=== PATIENT | male | born 1950 | race Caucasian/White ===

== ENCOUNTER → 2020-02-03 | Outpatient (CLI) | payer MEDICARE ==
[~2020-02-03] MED LIST: ALFUZOSIN HCL10 MG PO; FINASTERIDE5 MG PO; FLOMAX0.4 MG PO; FLONASE16 GM NS; HYDROXYCHLOROQ200 MG PO; IBUPROFEN400 MG PO; IOPAMIDOL 370 MG/ML 200 ML INFUS..BTL INJ ONE; LATANOPROST2.5 ML OU; LOSARTAN POTAS100 MG PO; NAPROXEN250 MG PO; NAPROXEN500 MG PO; NORVASC5 MG PO; OMEPRAZOLE40 MG PO; SODIUM CHLORIDE 0.9% 50ML 50 ML ONE; XANAX0.25 MG PO
[2020-02-03 11:07] LABS: BLOOD UREA NITROGEN 16 mg/dL (7-26); BUN/CREATININE RATIO 21 (6-25); CREATININE, SERUM 0.77 mg/dL (0.72-1.25); EST GLOMERULAR FILTRATION RATE > 60 ML/MIN (60-)
--- NOTE | 2020-02-03 13:31 | Diagnostic Imaging Report ---
CT of the chest. Comparison: None Clinical History: Preop Technique: Helical CT scan of the chest was performed from just above the thoracic inlet through the adrenal glands. Intravenous contrast administration was utilized. Coronal and sagittal reconstructions were generated from the raw data. Multiple images were submitted for interpretation. This exam was performed according to our departmental dose-optimization program which includes automated exposure control, adjustment of the mA and/or kV according to patient size Discussion: Lung zimmerman: No significant focal disease. Central airways: Unremarkable Pleural spaces and pleura: Unremarkable Pulmonary darian: Normal Mediastinum: Unremarkable Cardiac chambers and pericardium: Unremarkable Systemic great vessels: Unremarkable Central pulmonary vessels: Unremarkable Thyroid: Unremarkable Lymph nodes: Normal sized lymph nodes Azygos vein: Unremarkable The esophagus: Normal. Thoracic duct: Unremarkable Osseous structures: Degenerative changes right shoulder with suggestion of orthopedic surgery. Mid thoracic spine hemangioma. Degenerative disc disease. Upper abdomen: Unremarkable Body wall: Unremarkable Breasts: Unremarkable Axilla: Unremarkable Lower neck: Unremarkable. Impression: No significant abnormality on this chest CT. Signed by: James Pepper MD on 02/03/2020 1:27 PM
== END ==
LOC: CT 09:48
PROVIDERS: ATTEND Internal Medicine Gastroenterology
DX: K22.2 Esophageal obstruction (principal); M51.34 Other intervertebral disc degeneration, thoracic region
CPT/HCPCS: 36415; 71260; 82565; 84520; Q9967

== ENCOUNTER → 2020-02-13 | Day surgery (SDC) | payer MEDICARE, OTHER ==
[2020-02-09 10:00] LABS: BASOPHILS # (AUTO) 0.1 (0.0-0.1); BASOPHILS % 0.6 % (0.0-1.0); EOSINOPHILS # (AUTO) 0.5 (0.0-0.4); EOSINOPHILS % 5.2 % (0.0-6.0); HEMATOCRIT 40.8 % (38.2-49.6); HEMOGLOBIN 13.2 g/dL (14.0-18.0); LYMPHOCYTES # (AUTO) 2.7 (1.0-3.2); LYMPHOCYTES % 26.3 % (18.0-39.1); MEAN CORPUSCULAR HEMOGLOBIN 27.7 pg (28-32); MEAN CORPUSCULAR HGB CONC 32.4 g/dL (31-35); MEAN CORPUSCULAR VOLUME 85.7 fL (81-99); MONOCYTES # (AUTO) 1.1 (0.2-0.8); NEUTROPHILS # (AUTO) 5.8 (2.1-6.9); NEUTROPHILS % 56.5 % (38.7-80.0); PLATELET COUNT 334 x10e3/uL (140-360); RED BLOOD COUNT 4.76 x10e6/uL (4.3-5.7); RED CELL DISTRIBUTION WIDTH 12.7 % (11.7-14.4)
[~2020-02-13] MED LIST changes: +DEXMEDETOMIDINE HCL 2 ML ONE; +FENTANYL CITRATE/PF 100MCG/2 ML INJ ONE; +HYOSCYAMINE 0.125 MG TAB ONE; -IOPAMIDOL 370 MG/ML 200 ML INFUS..BTL INJ ONE; +MIDAZOLAM HCL 2 MG/2 ML VIAL ONE; +PROPOFOL IV EMULSION 10 MG/ML 20 ML VIAL ONE; +SODIUM CHLORIDE 0.9% 250ML 250 ML ONE; -SODIUM CHLORIDE 0.9% 50ML 50 ML ONE
--- OUTSIDE RECORDS SUMMARY | 2020-02-13 05:17 | XMS REPORT | Continuity of Care Document ---
Author Author Kush Olivia Coub DAMIEN [employer] Address Unknown Phone Unavailable Care Team Providers Care Dye Beck Reel Operator Name Role Phone [employer] Unavailable Un available Problems Problem Status Onset Date Classification Date Reported Comments Source PELVIC MASS Active 06/08/2019 [facility] UNK Active 1 09/29/2016 [facility] Allergic disposition (disorder) Resolved Problem [facility] Arthropathy (disorder) Resolved Problem 02/08/2020 [facility] Benign prostatic hyperplasia (disorder) Active Problem 02/08/2020 [facility] Gastroesophageal reflux disease (disorder) Active Problem 02/08/2020 [facility] Hypertensive disorder, systemic arterial (disorder) Active Problem 02/08/2020 [facility] Impotence of organic origin (disorder) Resolved Problem 02/08/2020 [facility] Mononeuropathy of upper limb (disorder) Resolved Problem 02/08/2020 [facility] Mumps (disorder) Resolved Problem 02/08/2020 [facility] Nocturia (finding) Resolved Problem 02/08/2020 [facility] Raised prostate specific antigen (finding) Active Problem 02/08/2020 [facility] Reduced libido (finding) Resol angelia Problem [facility] Retention of urine (disorder) Resolved Problem [facility] Tinnitus (finding) Resolved Problem 02/08/2020 [facility] Venous varices (disorder) Reso lved Problem [facility] Medications Medication Details Route Status Patient Instructions Ordering Provider Order Date Source tamsulosin 0.4 mg oral capsule 0.4 mg = 1 cap, PO, Daily, # 90 cap, 0 Refill(s) Active 02/06/2020 [facility] Hydroxychloroquine Sulfate 200 MG Oral Tablet 200 mg = 1 tab, PO, Daily, 0 Refill(s) Active 07/27/2019 [facility] 60 ACTUAT Fluticasone propionate 0.05 MG /ACTUAT Dry Powder Inhaler INHALATION, BID, 0 Refill(s) Active 07/27/2019 [facility] Sodium Phosphate, Dibasic 35.5 MG/ML / S odium Phosphate, Monobasic 96.4 MG/ML Enema [Fleet Enema] 1 ea, [place], ONCE, morning of procedure, # 118 ml, 0 Refill(s), [id number] Active 04/25/2019 [facility] Ciprofloxacin 500 MG Oral Tablet [Cipro] 500 mg = 1 tab, PO, Q12H, start day before procedure, X 3 day, # 6 tab, 0 Refill(s), [id number] Active 04/25/2019 [facility] Rocephin 1 g injection 1 gm, R oute: IM, Q12H, Dosing Weight 91.818, kg, Start date: 10/11/18 21:00:00 FORENSIC SCIENCE TECHNICIAN, Duration: 30 day, Stop date: 05/09/19 9:00:00 CDT, ABX Indication: Surgical Prophylaxis Active 10/12/2018 [facility] Ciprofloxacin 500 MG Oral Tablet [Cipro] 500 mg = 1 tab, PO, Q12H, start day before procedure, X 2 day, # 4 tab, 0 Refill(s), [id number] No Longer Active 10/11/2018 [facility] Sodium Phosphate, Dibasic 35.5 MG/ML / S odium Phosphate, Monobasic 96.4 MG/ML Enema [Fleet Enema] 1 ea, [place], ONCE, morning of procedure, # 118 ml, 0 Refill(s), Pharmacy: [facility] #[id number] Active 09/10/2018 [facility] Ciprofloxacin 500 MG Oral Tablet [Cipro] 500 mg = 1 tab, PO, Q12H, start day before procedure, X 3 day, # 6 tab, 0 Refill(s), Pharmacy: [facility]/pharmacy #[id number] No Longer Active 09/10/2018 [facility] finasteride 5 mg oral tablet 5 mg = 1 tab, PO, Daily, # 30, 11 Refill(s) Active 08/26/2018 [facility] ePHEDrine (ANES) Route: IV, Dr ug form: INJ, ONCE, Stop date: 09/01/17 11:35:00 FORENSIC SCIENCE TECHNICIAN Inactive 09/01/2017 [facility] ondansetron (ANES) Route: IV, Drug form: INJ, ONCE, Stop date: 09/01/17 11:19:00 FORENSIC SCIENCE TECHNICIAN Inactive 09/01/2017 [facility] metoclopramide (ANES) Route: I V, Drug form: INJ, ONCE, Stop date: 09/01/17 11:14:00 FORENSIC SCIENCE TECHNICIAN Inactive 09/01/2017 [facility] famotidine (ANES) Route: IV, D rug form: INJ, ONCE, Stop date: 09/01/17 11:14:00 FORENSIC SCIENCE TECHNICIAN Inactive 09/01/2017 [facility] fentaNYL (ANES) Route: IV, Marcelo g form: INJ, ONCE, Stop date: 09/01/17 11:09:00 FORENSIC SCIENCE TECHNICIAN Inactive 09/01/2017 [facility] lidocaine (ANES) Route: IV, Dr ug form: INJ, ONCE, Stop date: 09/01/17 11:09:00 FORENSIC SCIENCE TECHNICIAN Inactive 09/01/2017 [facility] propofol (ANES) Route: IV, Marcelo g form: INJ, ONCE, Stop date: 09/01/17 11:09:00 FORENSIC SCIENCE TECHNICIAN Inactive 09/01/2017 [facility] ciprofloxacin (ANES) 2 mg Rout e: IV, Drug form: INJ, Start date: 09/01/17 10:23:00 FORENSIC SCIENCE TECHNICIAN, Stop date: 09/01/17 11:23:00 FORENSIC SCIENCE TECHNICIAN Inactive 09/01/2017 [facility] Lactated Ringers Injection IV (ANES) 1000 mL Route: IV, Total Volume: 1,000, Start date: 09/01/17 10:00:00 FORENSIC SCIENCE TECHNICIAN, Stop date: 09/01/17 11:00:00 FORENSIC SCIENCE TECHNICIAN Inactive 09/01/2017 [facility] tramadol hydrochloride 50 MG Oral Tablet 50 mg = 1 tab, PO, Q8H, PRN Pain, X 20 day, # 30 tab, 0 Refill(s) Active 09/01/2017 [facility] Hyoscyamine Sulfate 0.125 MG Sublingual Tablet [Levsin ] 0.125 mg = 1 tab, SL, Q4H, PRN Bladder Spasm, # 40 tab, 0 Refill(s) Active 09/01/2017 [facility] Ciprofloxacin 500 MG Oral Tablet [Cipro] 500 mg = 1 tab, PO, Q12H, for UTI, X 3 day, # 6 tab, 0 Refill(s) Active 09/01/2017 [facility] finasteride 5 mg oral tablet 5 mg = 1 tab, PO, Daily, # 30 tab, 1 Refill(s) Active 09/01/2017 [facility] alfuzosin 10 mg oral tablet, extended release 10 mg = 1 tab, PO, Daily, # 30 tab, 1 Refill(s) Active 09/01/2017 [facility] Calcium Chloride 0.0014 MEQ/ML / Potassi um Chloride 0.004 MEQ/ML / Sodium Chloride 0.103 MEQ/ML / Sodium Lactate 0.028 MEQ/ML Injectable Solution 1,000 mL, Rate: 25 ml/hr, Infuse over: 4 0 hr, Route: IV, Dosing Weight 90 kg, Total Volume: 1,000, Start date: 09/01/17 8:21:00 FORENSIC SCIENCE TECHNICIAN, Duration: 30 day, Stop date: 10/01/17 8:20:00 FORENSIC SCIENCE TECHNICIAN, 2.07, m2 Inactive 09/01/2017 [facility] fluconazole 200 mg oral tablet 200 mg = 1 tab, PO, Daily, 0 Refill(s) Active 08/25/2017 [facility] Fluticasone propionate 0.05 MG/ACTUAT Me tered Dose Nasal [place] 1 spray, NASAL, Daily, 0 Refill(s) Active 08/25/2017 [facility] finasteride 5 mg oral tablet 5 mg = 1 tab, PO, Daily, 0 Refill(s) No Longer Active 08/25/2017 [facility] alfuzosin 10 mg oral tablet, extended release 10 mg = 1 tab, PO, Daily, 0 Refill(s) No Longer Active 08/25/2017 [facility] naproxen 500 mg oral tablet 50 0 mg = 1 tab, PO, BID, 0 Refill(s) Active 08/25/2017 [facility] omeprazole 40 mg oral delayed release capsule 40 mg = 1 cap, PO, Daily, 0 Refill(s) Active 08/25/2017 [facility] Hydroxychloroquine Sulfate 200 MG Oral Tablet 200 mg = 1 tab, PO, Daily, 0 Refill(s) Active 08/25/2017 [facility] amLODIPine 5 mg oral tablet 5 mg = 1 tab, PO, Daily, 0 Refill(s) Active 08/25/2017 [facility] losartan 25 mg oral tablet 25 mg = 1 tab, PO, Daily, 0 Refill(s) Active 08/25/2017 [facility] latanoprost 0.05 MG/ML Ophthalmic Solution 1 drp, QPM, 0 Refill(s) Active 08/25/2017 [facility] Allergies, Adverse Reactions, Alerts Substance Category Reaction Severity Reaction type Status Date Reported Comments Source Latex Assertion Drug allergy Active [facility] Immunizations No Data Provided for This Section Results Order Name Results Value Reference Range Date Interpretation Comments Source ELECTROLYTES AGAP 12.0 10.0 - 20.0 08/25/2017 [facility] ELECTROLYTES eGFR 89 08/25/2017 Result Comment: The eGFR is calculated using the CKD-EPI formula. In most young, healthy individuals the eGFR will be >90 mL/min/1.73m2. The eGFR declines with age. An eGFR of 60-89 may be normal in some populations, particularly the elderly, for whom the CKD-EPI formula has not been extensively validated. Use of the eGFR is not recommended in the following populations:

Individuals with unstable creatinine concentrations, including patients and those with serious co-morbid conditions.

Patients with extremes in muscle mass or diet.

The data above are obtained from the National Kidney Disease Education Program (NKDEP) which additionally recommends that when the eGFR is used in patients with extremes of body mass index for purposes of drug dosing, the eGFR should be multiplied by the estimated BMI. [facility] ELECTROLYTES BUN 11 7 - 22 08/25/2017 [facility] ELECTROLYTES Creatinine Lvl 0.8 7 0.50 - 1.40 08/25/2017 [facility] ELECTROLYTES Calcium Lvl 8.8 8.5 - 10.5 08/25/2017 [facility] ELECTROLYTES CO2 27 24 - 32 08/25/2017 [facility] ELECTROLYTES Chloride Lvl 105 95 - 109 08/25/2017 [facility] ELECTROLYTES Potassium Lvl 4.0 3.5 - 5.1 08/25/2017 [facility] ELECTROLYTES Sodium Lvl 140 135 - 145 08/25/2017 [facility] ELECTROLYTES Glucose Lvl 92 70 - 99 08/25/2017 [facility] HEMATOLOGY PTT 25.6 22.9 - 35.8 08/25/2017 [facility] HEMATOLOGY PT 13.5 12.0 - 14.7 08/25/2017 [facility] HEMATOLOGY INR 1.03 0.85 - 1.17 08/25/2017 [facility] HEMATOLOGY Hgb 13.7 14.0 - 18.0 08/25/2017 [facility] HEMATOLOGY MCHC 33.9 32.0 - 36.0 08/25/2017 [facility] HEMATOLOGY MCH 29.3 27.0 - 31.0 08/25/2017 [facility] HEMATOLOGY MCV 86.5 80.0 - 94.0 08/25/2017 [facility] HEMATOLOGY Hct 40.6 42.0 - 54.0 08/25/2017 [facility] HEMATOLOGY Platelet 323 133 - 450 08/25/2017 [facility] HEMATOLOGY RDW 13.3 11.5 - 14.5 08/25/2017 [facility] HEMATOLOGY RBC 4.69 4.70 - 6.10 08/25/2017 [facility] HEMATOLOGY WBC 7.3 3.7 - 10.4 08/25/2017 [facility] HEMATOLOGY MPV 8.5 7.4 - 10.4 08/25/2017 [facility] HEMATOLOGY Monocytes 9.8 2.0 - 12.0 08/25/2017 [facility] HEMATOLOGY Lymphocytes 26.2 20.0 - 40.0 08/25/2017 [facility] HEMATOLOGY Segs 59.5 45.0 - 75.0 08/25/2017 [facility] HEMATOLOGY Segs-Bands # 4.3 1.5 - 8.1 08/25/2017 [facility] HEMATOLOGY Lymphocytes # 1.9 1.0 - 5.5 08/25/2017 [facility] HEMATOLOGY Eosinophils # 0.3 0.0 - 0.5 08/25/2017 [facility] HEMATOLOGY Basophils 0.4 0.0 - 1.0 08/25/2017 [facility] HEMATOLOGY Monocytes # 0.7 0.0 - 0.8 08/25/2017 [facility] HEMATOLOGY Eosinophils 4.1 0.0 - 4.0 08/25/2017 [facility] SPECIAL CHEMISTRY PSA 1.26 0.00 - 4.00 08/25/2017 [facility] URINE AND STOOL UA Glucose Negative mg/dL Negative mg/dL 08/25/2017 [facility] URINE AND STOOL UA Protein Negative mg/dL Negative mg/dL 08/25/2017 [facility] URINE AND STOOL UA Color Yellow *NA* (08/25/17 11:36 AM) Yellow 08/25/2017 [facility] URINE AND STOOL UA Urobilinogen <=1.0 mg/dL 0.1 - 1.0 08/25/2017 [facility] URINE AND STOOL UA RBC 1 0 - 2 08/25/2017 [facility] URINE AND STOOL UA Nitrite Negative (08/25/17 11:36 AM) Negative 08/25/2017 [facility] URINE AND STOOL UA Leuk Est Negative (08/25/17 11:36 AM) Negative 08/25/2017 [facility] URINE AND STOOL UA Blood Negative (08/25/17 11:36 AM) Negative 08/25/2017 [facility] URINE AND STOOL UA WBC 1 0 - 5 08/25/2017 [facility] URINE AND STOOL UA Sq Epi None Seen 08/25/2017 [facility] URINE AND STOOL UA Turbidity Slight *ABN* (08/25/17 11:36 AM) Clear 08/25/2017 [facility] URINE AND STOOL UA pH 6.0 5.0 - 8.0 08/25/2017 [facility] URINE AND STOOL UA Spec Grav 1.008 <=1.030 08/25/2017 [facility] URINE AND STOOL UA Bili Negative *NA* (08/25/17 11:36 AM) Negative 08/25/2017 [facility] URINE AND STOOL UA Ketones Negative mg/dL Negative mg/dL 08/25/2017 [facility] Pathology Reports No Data Provided for This Section Diagnostic Reports Report Value Date Source Biopsy abdominal mass VR PROCE DURE INFORMATION: Exam: IR NEEDLE BX ABD/RETROPERITONEAL MASS PERC Exam date and time: 07/27/2019 8:05 AM Clinical history: 69 years old, male; Other: Pelvic mass; Additional info: /pelvic mass TECHNIQUE: Imaging protocol: IR NEEDLE BX ABD/RETROPERITONEAL MASS PERC Other technique: CT imaging performed at this location utilizes radiation dose optimization techniques which include one or more of the following: Automated exposure control, adjustment of the mA and/or kV according to patient size, use of iterative reconstruction technique. COMPARISON: No relevant prior studies available. FINDINGS: Advanced practice providers: None Additional procedures: None Consent: The procedure, risks, benefits and alternatives of the procedure were discussed. Time out: Timeout was performed prior to the procedure. I supervised moderate sedation during this procedure. The patient was monitored by a Hospital nurse using monitored blood pressure, electrocardiogram and pulse oximetry techniques. The moderate sedation record was permanently stored in the hospital information system. The personal supervised moderate sedation time was 19minutes. Medications administered: 1mg of IV Versed 50mcg of IV Fentanyl Procedure summary: The patient was prepped and draped in sterile fashion. With CT guidance, percutaneous needle biopsy of a 2 x 3 CM solid appearing mass in the left suprainguinal region adjacent to the urinary bladder, was performed. 20-gauge core biopsy performed through 1 9-gauge cannula. 4 core biopsy specimens obtained 2 of which were sent in RPMI for flow cytometry if deemed necessary. The procedure was well tolerated clinically. Procedural imaging: CT guidance as described above. Other findings: CT RADIATION DOSE DLP: 1296MGY-CM IMPRESSION: Successful percutaneous core biopsy left suprainguinal pelvic mass. Greg Naqvi MD On 07/27/2019 15:48:53; [id number] 07/27/2019 [facility] Consultation Notes No Data Provided for This Section Discharge Summaries No Data Provided for This Section History and Physicals No Data Provided for This Section Vital Signs Vital Sign Value Date Comments Source Height 165.1 cm 02/06/2020 [facility] Weight 91.563 02/06/2020 [facility] BMI Calculated 33.59 02/06/2020 [facility] Height 165.1 cm 09/05/2019 [facility] Weight 91.506 09/05/2019 [facility] BMI Calculated 33.57 09/05/2019 [facility] Height 170.18 cm 07/27/2019 [facility] Weight 92.727 07/27/2019 [facility] BMI Calculated 32.02 07/27/2019 [facility] Height 165.1 cm 06/08/2019 [facility] Weight 94.001 06/08/2019 [facility] BMI Calculated 34.49 06/08/2019 [facility] Height 167.64 cm 05/16/2019 [facility] Weight 93.21 05/16/2019 [facility] BMI Calculated 33.17 05/16/2019 [facility] Weight 93.722 04/25/2019 [facility] BMI Calculated 33.35 04/25/2019 [facility] Height 167.64 cm 04/25/2019 [facility] Weight 94.261 10/18/2018 [facility] BMI Calculated 33.54 10/18/2018 [facility] Height 167.64 cm 10/18/2018 [facility] Height 170.18 cm 10/11/2018 [facility] Weight 91.818 10/11/2018 [facility] BMI Calculated 31.7 10/11/2018 [facility] Weight 91.818 09/10/2018 [facility] BMI Calculated 31.7 09/10/2018 [facility] Height 170.18 cm 09/10/2018 [facility] BMI Calculated 33 08/26/2018 [facility] Weight 92.727 08/26/2018 [facility] Height 167.64 cm 08/26/2018 [facility] Systolic (mm Hg) 131 09/01/2017 [facility] Diastolic (mm Hg) 68 09/01/2017 [facility] Systolic (mm Hg) 117 09/01/2017 [facility] Diastolic (mm Hg) 75 09/01/2017 [facility] Respitory Rate 9 09/01/2017 [facility] Respitory Rate 12 09/01/2017 [facility] Systolic (mm Hg) 120 09/01/2017 [facility] Diastolic (mm Hg) 75 09/01/2017 [facility] Respitory Rate 10 09/01/2017 [facility] Heart Rate 64 08/25/2017 [facility] Temperature Oral (F) 98.3 F 08/25/2017 [facility] Weight 90 1 10/25/2016 [facility] BMI Calculated 32.02 08/25/2017 [facility] Height 167.64 cm 08/25/2017 [facility] Encounters Location Location Details Encounter Type Encounter Number Reason For Visit Attending Provider ADM Date DC Date Status Source [facility] [id number] Rl Noble 09/01/2017 09/01/2017 [facility] Outpatient [id number] RL NOBLE 08/26/2018 Active [facility] Outpatient [id number] NURSE VISIT 08/26/2018 Active [facility] Outpatient [id number] Rl Noble 08/26/2018 08/27/2018 [facility] Ambulatory Pre-Reg [id number] Rl Noble 08/26/2018 08/27/2018 [facility] Outpatient [id number] RL NOBLE 09/10/2018 Active [facility] Outpatient [id number] Rl Noble 09/10/2018 09/11/2018 [facility] Outpatient [id number] NURSE VISIT 10/11/2018 Active [facility] Outpatient [id number] RL NOBLE 10/11/2018 Active [facility] Outpatient [id number] Rl Noble 10/11/2018 10/12/2018 [facility] Outpatient [id number] Rl Noble 10/11/2018 10/12/2018 [facility] Outpatient [id number] RL NOBLE 10/18/2018 Active [facility] Outpatient [id number] Rl Noble 10/18/2018 10/19/2018 [facility] Outpatient [id number] NURSE VISIT 03/21/2019 Active [facility] Outpatient [id number] Rl Noble 03/28/2019 Active [facility] Outpatient [id number] Rl Noble 03/28/2019 03/29/2019 [facility] Outpatient [id number] Rl Noble 04/25/2019 Active [facility] Outpatient [id number] Rl Noble 04/25/2019 04/26/2019 [facility] Outpatient [id number] NURSE VISIT 04/27/2019 Active [facility] Outpatient [id number] Rl Noble 04/27/2019 04/28/2019 [facility] Outpatient [id number] Rl Noble 05/16/2019 Active [facility] Outpatient [id number] Rl Noble 05/16/2019 05/17/2019 [facility] Outpatient [id number] Rl Noble 06/01/2019 Active [facility] Outpatient [id number] Rl Noble 06/01/2019 06/02/2019 [facility] Outpatient [id number] Rl Noble 06/08/2019 Active [facility] Outpatient [id number] Rl Noble 06/08/2019 06/09/2019 [facility] Outpatient [id number] Rl Noble 06/09/2019 Active [facility] Phone Message [id number] 06/16/2006/18/2019 [facility] Outpatient [id number] Rl Noble 07/04/2019 Active [facility] Outpatient [id number] [facility] 07/04/2019 07/05/2019 [facility] Outpatient [id number] Rl [facility] 07/27/2019 07/28/2019 [facility] Phone Message [id number] 08/05/2008/07/2019 [id number] [facility] Outpatient [id number] Rl [facility] 09/05/2019 09/06/2019 [facility] Outpatient [id number] NURSE VISIT 10/17/2019 Active [facility] [id number] Rl [facility] 10/17/2019 10/17/2019 [facility] Outpatient [id number] Rl [facility] 10/24/2019 Active [facility] [id number] Rl [facility] 10/24/2019 10/24/2019 [facility] Outpatient [id number] Rl [facility] 02/06/2020 Active [facility] Outpatient [id number] Rl [facility] 02/06/2020 02/07/2020 [facility] Outpatient [id number] Rl [facility] 08/06/2020 Active [facility] Procedures Procedure Code Date Perfomer Comments Source Collection of venous blood by venipuncture 80215 04/27/2019 [facility] Biopsy, prostate; needle or punch, singl e or multiple, any approach [id number] 10/11/2018 [facility] Needle biopsy of prostate [id number] 09/28/2018 [facility] uroflowmetry [id number] 10/08/2017 [facility] Cystoscopy [id number] 07/30/2017 [facility] Rotator cuff repair [id number] 09/28/2006 [facility] Meniscal repair [id number] 09/28/1996 [facility] Operation [id number] 09/28/1994 [facility] Hernia repair [id number] 09/28/1976 [facility] Assessment and Plan No Data Provided for This Section Plan of Care No Data Provided for This Section Social History Social History Date Source Social History TypeResponse Alcohol Current, Type Beer, Wine, Liquor. Frequency: 1-2 times per week. Smoking Status Never smoker; Type: Cigars; Exposure to Tobacco Smoke None; Cigarette Smoking Last 365 Days No; Reg Smoking Cessation Counseling No entered on: 02/06/20 08/26/2018 [facility] Social History TypeResponse Alcohol Current, Type Beer, Wine, Liquor. Frequency: 1-2 times per week. Smoking Status Never smoker; Type: Cigars; Exposure to Tobacco Smoke None; Cigarette Smoking Last 365 Days No; Reg Smoking Cessation Counseling No entered on: 07/27/19 08/26/2018 [facility] Family History No Data Provided for This Section Advance Directives No Data Provided for This Section Functional Status No Data Provided for This Section
--- OUTSIDE RECORDS SUMMARY | 2020-02-13 05:17 | XMS REPORT | Summary of Care ---
Author Author [facility] ospital Organization [facility] Address Unknown Phone Unavailable Encounter BLAINE Zaidi(FATOU) [id number] Date(s): 07/27/19 - 07/27/19 [facility] [address] [place] [address]- [phone] Discharge Disposition: Home or Self Care Attending Physician: Rl Davenport MD Referring Physician: Rl Davenport MD Vital Signs Most recent to 1 oldest [Reference Range]: Height 170.18 cm (07/27/19 8:03 AM) Weight 92.727 kg (07/27/19 8:03 AM) Body Mass Index 32.02 m2 (07/27/19 8:03 AM) Problem List Condition Effective Dates Status Health Status Informan t Allergy(Confirmed) Resolved Arthropathy(Confirme Resolved d) BPH (benign Active prostatic hyperplasia)(Confirm ed) GERD Active (gastroesophageal reflux disease)(Confirmed) HTN Active (hypertension)(Confi rmed) Impotence, Resolved organic(Confirmed) Mononeuritis Resolved arm(Confirmed) Mumps(Confirmed) Resolved Nocturia(Confirmed) Resolved Elevated Active PSA(Confirmed) Decreased Resolved libido(Confirmed) Urinary Resolved retention(Confirmed) Tinnitus(Confirmed) Resolved Asymptomatic Resolved varicose veins(Confirmed) Allergies, Adverse Reactions, Alerts Substance Reaction Severity Status Latex Active Medications fluticasone 50 mcg inhalation powder INHALATION, BID, 0 Refill(s) Start Date: 07/27/19 Status: Ordered hydroxychloroquine sulfate 200 mg oral tablet 200 mg = 1 tab, PO, Daily, 0 Refill(s) Start Date: 07/27/19 Status: Ordered Results No data available for this section Immunizations No data available for this section Procedures Procedure Date Related Diagnosis Body Site Status Needle biopsy of prostate 09/2018 Completed Complex uroflowmetry 10/08/17 Completed Cystoscopy 07/30/17 Completed Rotator cuff repair 2009 Completed Rotator cuff repair 2006 Completed Meniscal repair 1996 Completed Operation 1994 Completed Hernia repair 1976 Completed Social History Social History Type Response Alcohol Current, Type Beer, Wine, [place]. Frequency: 1-2 times per week. Smoking Status Never smoker; Type: Cigars; Exposure to Tobacco Smoke None; Cigarette Smoking Last 365 Days No; Reg Smoking C essation Counseling No entered on: 07/27/19 Assessment and Plan No data available for this section
--- OUTSIDE RECORDS SUMMARY | 2020-02-13 05:17 | XMS REPORT | Summary of Care ---
Author Author [facility] Associates [facility] Organization [facility] Urology [facility] Address Unknown Phone Unavailable Encounter BLAINE Zaidi(FATOU) [id number] Date(s): 10/18/18 - 10/18/18 [facility] [address] [address]- [phone] Discharge Disposition: Home or Self Care Attending Physician: Rl Davenport MD Referring Physician: Rl Davenport MD Vital Signs Most recent to 1 oldest [Reference Range]: Height 167.64 cm (10/18/18 4:49 PM) Weight 94.261 kg (10/18/18 4:49 PM) Body Mass Index 33.54 m2 (10/18/18 4:49 PM) Problem List Condition Effective Dates Status Health [...] Substance Reaction Severity Status Latex Active Medications No Known Medications Results No data available for this section [...] Smoking C essation Counseling No entered on: 04/25/19 Assessment and Plan No data available for this section
--- OUTSIDE RECORDS SUMMARY | 2020-02-13 05:17 | XMS REPORT | Summary of Care ---
Author Author [facility] Organization [facility] Address Unknown Phone Unavailable Encounter BLAINE Zaidi(FATOU) [id number] Date(s): 04/25/19 - 04/25/19 [facility] [address] [address]- [phone] Discharge Disposition: Home or Self Care Attending Physician: Rl Davenport MD Referring Physician: Rl Davenport MD Vital Signs Most recent to 1 oldest [Reference Range]: Height 167.64 cm (04/25/19 1:58 PM) Weight 93.722 kg (04/25/19 1:58 PM) Body Mass Index 33.35 m2 (04/25/19 1:58 PM) Problem List Condition Effective Dates Status [...] Substance Reaction Severity Status Latex Active Medications Cipro 500 mg oral tablet 500 mg = 1 tab, PO, Q12H, start day before procedure, X 3 day, # 6 tab, 0 Refill (s), Pharmacy: [facility] #[id number] Start Date: 04/25/19 Stop Date: 04/28/19 Status: Ordered Fleet Enema Extra rectal enema 1 ea, [place], ONCE, morning of procedure, # 118 ml, 0 Refill(s), Pharmacy: [facility] #[id number] Start Date: 04/25/19 Status: Ordered Results No data available for [...]
--- OUTSIDE RECORDS SUMMARY | 2020-02-13 05:17 | XMS REPORT | Summary of Care ---
Author Author [facility] Associates [facility] Organization [facility] Urology [facility] Address Unknown Phone Unavailable Encounter BLAINE Zaidi(FIN) [id number] Date(s): 10/24/19 - 10/24/19 [facility] Urology [address] [address]- [phone] Attending Physician: Rl Davenport MD Referring Physician: Rl Davenport MD Vital Signs No data available for this section Problem List Condition Effective Dates Status Health [...] Reaction Severity Status Latex Active Medications No data available for this section Results No data available for this section [...] Smoking C essation Counseling No entered on: 09/05/19 Assessment and Plan No data available for this section
--- OUTSIDE RECORDS SUMMARY | 2020-02-13 05:17 | XMS REPORT | Summary of Care ---
Author Author [facility] Organization [facility] Address Unknown Phone Unavailable Encounter BLAINE Zaidi(FIN) [id number] Date(s): 06/16/19 - 06/17/19 [facility] [address] [place] [address]- [phone] Vital Signs No data available for this [...] Smoking C essation Counseling No entered on: 06/08/19 Assessment and Plan No data available for this section
--- OUTSIDE RECORDS SUMMARY | 2020-02-13 05:17 | XMS REPORT | Summary of Care ---
Author Author [facility] Organization [facility] Address Unknown Phone Unavailable Encounter BLAINE Zaidi(FIN) [id number] Date(s): 06/01/19 - 06/01/19 [facility] [address] [address]- [phone] Discharge Disposition: Home or Self Care Attending [...] Smoking C essation Counseling No entered on: 05/16/19 Assessment and Plan No data available for this section
--- OUTSIDE RECORDS SUMMARY | 2020-02-13 05:17 | XMS REPORT | Summary of Care ---
Author Author [facility] Organization [facility] Address Unknown Phone Unavailable Encounter BLAINE Zaidi(FATOU) [id number] Date(s): 09/01/17 - 09/01/17 [facility] [address] [place] [address]- Discharge Disposition: Home or Self Care Attending Physician: Rl Davenport MD Referring Physician: Rl Davenport MD Vital Signs 1 2 3 Most recent to oldest [Reference Range]: 167.64 cm (08/25/17 11:20 AM) Height 98.3 DegF (08/25/17 11:44 AM) Temperature Oral [96.4-99.1 DegF] 131/68 mmHg (09/01/17 1:00 PM) 117/75 mmHg (09/01/17 12:15 PM) 120/75 mmHg (09/01/17 12:00 PM) Blood Pressure [90-140/60-90 mmHg] 9 BRMIN *LOW* (09/01/17 12:15 PM) 12 BRMIN *LOW* (09/01/17 12:00 PM) 10 BRMIN *LOW* (09/01/17 11:45 AM) Respiratory Rate [14-20 BRMIN] 64 bpm (08/25/17 11:44 AM) Peripheral Pulse Rate [60-100 bpm] 90 kg (08/25/17 11:20 AM) Weight 32.02 m2 (08/25/17 11:20 AM) Body Mass Index Problem List Condition Effective Dates Status Health Status Informan t BPH (benign Active prostatic hyperplasia)(Confirm ed) GERD Active (gastroesophageal reflux disease)(Confirmed) HTN Active (hypertension)(Confi rmed) Allergies, Adverse Reactions, Alerts Substance Reaction Severity Status NKDA Active Latex Active Medications alfuzosin 10 mg oral tablet, extended release 10 mg = 1 tab, PO, Daily, # 30 tab, 1 Refill(s) Start Date: 09/01/17 Status: Ordered alfuzosin 10 mg oral tablet, extended release 10 mg = 1 tab, PO, Daily, 0 Refill(s) Start Date: 08/25/17 Stop Date: 09/01/17 Status: Discontinued amLODIPine 5 mg oral tablet 5 mg = 1 tab, PO, Daily, 0 Refill(s) Start Date: 08/25/17 Status: Ordered Cipro 500 mg oral tablet 500 mg = 1 tab, PO, Q12H, for UTI, X 3 day, # 6 tab, 0 Refill(s) Start Date: 09/01/17 Stop Date: 09/04/17 Status: Ordered ciprofloxacin (ANES) 2 mg Route: IV, Drug form: INJ, Start date: 09/01/17 10:23:00 CELERY TIER, Stop date: 7 11:23:00 CELERY TIER Start Date: 09/01/17 Stop Date: 09/01/17 Status: Completed ePHEDrine (ANES) Route: IV, Drug form: INJ, ONCE, Stop date: 09/01/17 11:35:00 CELERY TIER Start Date: 09/01/17 Stop Date: 09/01/17 Status: Completed famotidine (ANES) Route: IV, Drug form: INJ, ONCE, Stop date: 09/01/17 11:14:00 CELERY TIER Start Date: 09/01/17 Stop Date: 09/01/17 Status: Completed fentaNYL (ANES) Route: IV, Drug form: INJ, ONCE, Stop date: 09/01/17 11:09:00 CELERY TIER Start Date: 09/01/17 Stop Date: 09/01/17 Status: Completed finasteride 5 mg oral tablet 5 mg = 1 tab, PO, Daily, # 30 tab, 1 Refill(s) Start Date: 09/01/17 Status: Ordered finasteride 5 mg oral tablet 5 mg = 1 tab, PO, Daily, 0 Refill(s) Start Date: 08/25/17 Stop Date: 09/01/17 Status: Discontinued fluconazole 200 mg oral tablet 200 mg = 1 tab, PO, Daily, 0 Refill(s) Start Date: 08/25/17 Status: Ordered fluticasone nasal 0.05 mg/inh spray 1 spray, NASAL, Daily, 0 Refill(s) Start Date: 08/25/17 Status: Ordered hydroxychloroquine sulfate 200 mg oral tablet 200 mg = 1 tab, PO, Daily, 0 Refill(s) Start Date: 08/25/17 Status: Ordered Lactated Ringers Injection IV (ANES) 1000 mL Route: IV, Total Volume: 1,000, Start date: 09/01/17 10:00:00 CELERY TIER, Stop date: 11:00:00 CELERY TIER Start Date: 09/01/17 Stop Date: 09/01/17 Status: Completed Lactated Ringers Injection IV 1000 mL 1,000 mL, Rate: 25 ml/hr, Infuse over: 40 hr, Route: IV, Dosing Weight 90 kg, To carlos Volume: 1,000, Start date: 09/01/17 8:21:00 CELERY TIER, Duration: 30 day, Stop date : 10/01/17 8:20:00 CELERY TIER, 2.07, m2 Start Date: 09/01/17 Stop Date: 09/01/17 Status: Discontinued latanoprost ophthalmic 0.005% solution 1 drp, QPM, 0 Refill(s) Start Date: 08/25/17 Status: Ordered Levsin SL 0.125 mg sublingual tablet 0.125 mg = 1 tab, SL, Q4H, PRN Bladder Spasm, # 40 tab, 0 Refill(s) Start Date: 09/01/17 Status: Ordered lidocaine (ANES) Route: IV, Drug form: INJ, ONCE, Stop date: 09/01/17 11:09:00 CELERY TIER Start Date: 09/01/17 Stop Date: 09/01/17 Status: Completed losartan 25 mg oral tablet 25 mg = 1 tab, PO, Daily, 0 Refill(s) Start Date: 08/25/17 Status: Ordered metoclopramide (ANES) Route: IV, Drug form: INJ, ONCE, Stop date: 09/01/17 11:14:00 CELERY TIER Start Date: 09/01/17 Stop Date: 09/01/17 Status: Completed naproxen 500 mg oral tablet 500 mg = 1 tab, PO, BID, 0 Refill(s) Start Date: 08/25/17 Status: Ordered omeprazole 40 mg oral delayed release capsule 40 mg = 1 cap, PO, Daily, 0 Refill(s) Start Date: 08/25/17 Status: Ordered ondansetron (ANES) Route: IV, Drug form: INJ, ONCE, Stop date: 09/01/17 11:19:00 CELERY TIER Start Date: 09/01/17 Stop Date: 09/01/17 Status: Completed propofol (ANES) Route: IV, Drug form: INJ, ONCE, Stop date: 09/01/17 11:09:00 CELERY TIER Start Date: 09/01/17 Stop Date: 09/01/17 Status: Completed tramadol 50 mg oral tablet 50 mg = 1 tab, PO, Q8H, PRN Pain, X 20 day, # 30 tab, 0 Refill(s) Start Date: 09/01/17 Stop Date: 09/21/17 Status: Ordered Results ELECTROLYTES Most recent to 1 oldest [Reference Range]: Sodium Lvl [135-145 140 mEq/L mEq/L] (08/25/17 11:36 AM) Potassium Lvl 4.0 mEq/L [3.5-5.1 mEq/L] (08/25/17 11:36 AM) Chloride Lvl [95-109 105 mEq/L mEq/L] (08/25/17 11:36 AM) CO2 [24-32 mEq/L] 27 mEq/L (08/25/17 11:36 AM) AGAP [10.0-20.0 12.0 mEq/L mEq/L] (08/25/17 11:36 AM) CHEM PANEL Most recent to 1 oldest [Reference Range]: Creatinine Lvl 0.87 mg/dL [0.50-1.40 mg/dL] (08/25/17 11:36 AM) eGFR 89 mL/min/1.73m2 1 *NA* (08/25/17 11:36 AM) BUN [7-22 mg/dL] 11 mg/dL (08/25/17 11:36 AM) Glucose Lvl [70-99 92 mg/dL mg/dL] (08/25/17 11:36 AM) Calcium Lvl 8.8 mg/dL [8.5-10.5 mg/dL] (08/25/17 11:36 AM) 1Result Comment: The eGFR is calculated using the [...] from the National Kidney Disease Education Program ( NKDEP) which additionally recommends that when the eGFR is used in patients with extremes of body mass index for purposes of drug dosing, the eGFR should be mul tiplied by the estimated BMI. SPECIAL CHEMISTRY Most recent to 1 oldest [Reference Range]: PSA [0.00-4.00 1.26 ng/mL ng/mL] (08/25/17 11:36 AM) URINE AND STOOL Most recent to 1 oldest [Reference Range]: UA Turbidity [Clear] Slight *ABN* (08/25/17 11:36 AM) UA Color [Yellow] Yellow *NA* (08/25/17 11:36 AM) UA pH [5.0-8.0] 6.0 (08/25/17 11:36 AM) UA Spec Grav 1.008 [<=1.030] (08/25/17 11:36 AM) UA Glucose [Negative Negative mg/dL mg/dL] *NA* (08/25/17 11:36 AM) UA Blood [Negative] Negative (08/25/17 11:36 AM) UA Ketones [Negative Negative mg/dL mg/dL] *NA* (08/25/17 11:36 AM) UA Protein [Negative Negative mg/dL mg/dL] (08/25/17 11:36 AM) UA Urobilinogen <=1.0 mg/dL [0.1-1.0 mg/dL] *NA* (08/25/17 11:36 AM) UA Bili [Negative] Negative *NA* (08/25/17 11:36 AM) UA Leuk Est Negative [Negative] (08/25/17 11:36 AM) UA Nitrite Negative [Negative] (08/25/17 11:36 AM) UA WBC [0-5 /HPF] 1 /HPF (08/25/17 11:36 AM) UA RBC [0-2 /HPF] 1 /HPF (08/25/17 11:36 AM) UA Sq Epi None Seen *NA* (08/25/17 11:36 AM) HEMATOLOGY Most recent to 1 oldest [Reference Range]: WBC [3.7-10.4 K/CMM] 7.3 K/CMM (08/25/17 11:36 AM) RBC [4.70-6.10 4.69 M/CMM M/CMM] *LOW* (08/25/17 11:36 AM) Hgb [14.0-18.0 g/dL] 13.7 g/dL *LOW* (08/25/17 11:36 AM) Hct [42.0-54.0 %] 40.6 % *LOW* (08/25/17 11:36 AM) MCV [80.0-94.0 fL] 86.5 fL (08/25/17 11:36 AM) MCH [27.0-31.0 pg] 29.3 pg (08/25/17 11:36 AM) MCHC [32.0-36.0 33.9 g/dL g/dL] (08/25/17 11:36 AM) RDW [11.5-14.5 %] 13.3 % (08/25/17 11:36 AM) Platelet [133-450 323 K/CMM K/CMM] (08/25/17 11:36 AM) MPV [7.4-10.4 fL] 8.5 fL (08/25/17 11:36 AM) Segs [45.0-75.0 %] 59.5 % (08/25/17 11:36 AM) Lymphocytes 26.2 % [20.0-40.0 %] (08/25/17 11:36 AM) Monocytes [2.0-12.0 9.8 % %] (08/25/17 11:36 AM) Eosinophils [0.0-4.0 4.1 % %] *HI* (08/25/17 11:36 AM) Basophils [0.0-1.0 0.4 % %] (08/25/17 11:36 AM) Segs-Bands # 4.3 K/CMM [1.5-8.1 K/CMM] (08/25/17 11:36 AM) Lymphocytes # 1.9 K/CMM [1.0-5.5 K/CMM] (08/25/17 11:36 AM) Monocytes # [0.0-0.8 0.7 K/CMM K/CMM] (08/25/17 11:36 AM) Eosinophils # 0.3 K/CMM [0.0-0.5 K/CMM] (08/25/17 11:36 AM) PT [12.0-14.7 13.5 seconds seconds] (08/25/17 11:36 AM) INR [0.85-1.17] 1.03 (08/25/17 11:36 AM) PTT [22.9-35.8 25.6 seconds seconds] (08/25/17 11:36 AM) Immunizations No data available for this section Procedures Procedure Date Related Diagnosis Body Site Rotator cuff repair 2009 Rotator cuff repair 2006 Meniscal repair 1996 Operation 1994 Hernia repair 1976 Social History Social History Type Response Smoking Status Former smoker; Type: Cigars ; Exposure to Tobacco Smoke None; Cigarette Smoking Last 365 Days No; Reg Smoking C essation Counseling No Assessment and Plan No data available for this section
--- OUTSIDE RECORDS SUMMARY | 2020-02-13 05:17 | XMS REPORT | Summary of Care ---
Author Author [facility] Organization [facility] Address Unknown Phone Unavailable Encounter BLAINE Zaidi(FATOU) [id number] Date(s): 09/10/18 - 09/10/18 [facility] [place] [id number] [place] [address] [place] [address]- Discharge Disposition: Home or Self Care Attending Physician: Rl Davenport MD Referring Physician: Rl Davenport MD Vital Signs Most recent to 1 oldest [Reference Range]: Height 170.18 cm (09/10/18 1:39 PM) Weight 91.818 kg (09/10/18 1:39 PM) Body Mass Index 31.7 m2 (09/10/18 1:39 PM) Problem List Condition Effective Dates Status [...] # 6 tab, 0 Refill (s), Pharmacy: [facility] #[id number] Start Date: 09/10/18 Stop Date: 09/13/18 Status: Completed Fleet Enema Extra rectal enema 1 ea, [place], ONCE, morning of procedure, # 118 ml, 0 Refill(s), Pharmacy: [id number] Start Date: 09/10/18 Status: Ordered Results No data available for [...] Smoking C essation Counseling No entered on: 03/28/19 Assessment and Plan No data available for this section
--- OUTSIDE RECORDS SUMMARY | 2020-02-13 05:17 | XMS REPORT | Summary of Care ---
Author Author [facility] Organization [facility] ton Address Unknown Phone Unavailable Encounter BLAINE Zaidi(FIN) [id number] Date(s): 08/26/18 - 08/26/18 [facility] [place] [id number] [place] [address] [place] [address]- Discharge Disposition: Home or Self Care Attending Physician: Rl Davenport MD Referring Physician: Rl Davenport MD Vital Signs Most recent to 1 oldest [Reference Range]: Height 167.64 cm (08/26/18 10:06 AM) Weight 92.727 kg (08/26/18 10:06 AM) Body Mass Index 33 m2 (08/26/18 10:06 AM) Problem List Condition Effective Dates Status [...] Substance Reaction Severity Status Latex Active Medications finasteride 5 mg oral tablet 5 mg = 1 tab, PO, Daily, # 30, 11 Refill(s) Start Date: 08/26/18 Status: Ordered Results No data available for [...] Smoking C essation Counseling No entered on: 10/18/18 Assessment and Plan No data available for this section
--- OUTSIDE RECORDS SUMMARY | 2020-02-13 05:17 | XMS REPORT | Summary of Care ---
Author Author [facility] Associates [facility] ton Organization [facility] [place] Address Unknown Phone Unavailable Encounter BLAINE Zaidi(FIN) [id number] Date(s): 02/06/20 - 02/06/20 [facility] [place] [address] [address] [place] [address]- Discharge Disposition: Home or Self Care Attending Physician: Rl Davenport MD Vital Signs Most recent to 1 oldest [Reference Range]: Height 165.1 cm (02/06/20 9:26 AM) Weight 91.563 kg (02/06/20 9:26 AM) Body Mass Index 33.59 m2 (02/06/20 9:26 AM) Problem List Condition Effective Dates Status [...] Substance Reaction Severity Status Latex Active Medications tamsulosin 0.4 mg oral capsule 0.4 mg = 1 cap, PO, Daily, # 90 cap, 0 Refill(s) Start Date: 02/06/20 Status: Ordered Results No data available for [...] Smoking C essation Counseling No entered on: 02/06/20 Assessment and Plan No data available for this section
--- OUTSIDE RECORDS SUMMARY | 2020-02-13 05:17 | XMS REPORT | Summary of Care ---
Author Author [facility] Organization [facility] Address Unknown Phone Unavailable Encounter BLAINE Zaidi(FIN) [id number] Date(s): 03/28/19 - 03/28/19 [facility] [address] [address]- [phone] Discharge Disposition: Home or Self Care Attending [...]
--- OUTSIDE RECORDS SUMMARY | 2020-02-13 05:17 | XMS REPORT | Summary of Care ---
Author Author [facility] ton Organization [facility] ton Address Unknown Phone Unavailable Encounter HQ Dylonr_barby(FIN) [id number] Date(s): 08/26/18 - 08/26/18 [facility] [place] [address] [place] [address]- [phone] Discharge Disposition: Home or Self Care Referring Physician: Rl Davenport MD Vital Signs [...]
--- OUTSIDE RECORDS SUMMARY | 2020-02-13 05:17 | XMS REPORT | Summary of Care ---
Author Author [facility] Organization [facility] Address Unknown Phone Unavailable Encounter BLAINE Zaidi(FATOU) [id number] Date(s): 10/11/18 - 10/11/18 [facility] [address] [address]- [phone] Discharge Disposition: Home or Self Care Attending Physician: Rl Davenport MD Referring Physician: Rl Davenport MD Vital Signs Most recent to 1 oldest [Reference Range]: Height 170.18 cm (10/11/18 1:37 PM) Weight 91.818 kg (10/11/18 1:37 PM) Body Mass Index 31.7 m2 (10/11/18 1:37 PM) Problem List Condition Effective Dates Status [...] X 2 day, # 4 tab, 0 Refill (s), Pharmacy: [facility]/pharmacy #[id number] Start Date: 10/11/18 Stop Date: 10/13/18 Status: Completed Rocephin 1 g injection 1 gm, Route: IM, Q12H, Dosing Weight 91.818, kg, Start date: 10/11/18 21:00:[address], Duration: 30 day, Stop date: 05/09/19 9:00:00 CDT, ABX Indication: Surgical Prophylaxis Start Date: 10/11/18 Stop Date: 05/09/19 Status: Ordered Results No data available for this section Immunizations No data available for this section Procedures Procedure Date Related Diagnosis Body Site Status Biopsy, prostate; needle or punch, single or 10/11/18 Completed multiple, any approach Needle biopsy of prostate 09/2018 Completed Complex [...]
--- OUTSIDE RECORDS SUMMARY | 2020-02-13 05:17 | XMS REPORT | Summary of Care ---
Author Author [facility] Organization [facility] Address Unknown Phone Unavailable Encounter BLAINE Zaidi(FATOU) [id number] Date(s): 09/05/19 - 09/05/19 [facility] [address] [address]- [phone] Discharge Disposition: Home or Self Care Attending Physician: Rl Davenport MD Referring Physician: Rl Davenport MD Vital Signs Most recent to 1 oldest [Reference Range]: Height 165.1 cm (09/05/19 2:06 PM) Weight 91.506 kg (09/05/19 2:06 PM) Body Mass Index 33.57 m2 (09/05/19 2:06 PM) Problem List Condition Effective Dates Status [...]
--- OUTSIDE RECORDS SUMMARY | 2020-02-13 05:17 | XMS REPORT | Summary of Care ---
Author Author [facility] Organization [facility] Address Unknown Phone Unavailable Encounter BLAINE Zaidi(FIN) [id number] Date(s): 07/04/19 - 07/04/19 [facility] [address] [address]- [phone] Discharge Disposition: Home or Self Care Attending [...]
--- OUTSIDE RECORDS SUMMARY | 2020-02-13 05:17 | XMS REPORT | Summary of Care ---
Author Author [facility] ton Organization [facility] ton Address Unknown Phone Unavailable Encounter BLAINE Zaidi(FIN) [id number] Date(s): 10/11/18 - 10/11/18 [facility] [place] [phone] [place] [address] [place] [address]- Discharge Disposition: Home or Self Care Attending [...]
--- OUTSIDE RECORDS SUMMARY | 2020-02-13 05:17 | XMS REPORT | Summary of Care ---
Author Author [facility] Organization [facility] Address Unknown Phone Unavailable Encounter BLAINE Zaidi(FIN) [id number] Date(s): 06/08/19 - 06/08/19 [facility] [address] [address]- [phone] Discharge Disposition: Home or Self Care Attending Physician: Rl Davenport MD Referring Physician: Rl Davenport MD Vital Signs Most recent to 1 oldest [Reference Range]: Height 165.1 cm (06/08/19 8:23 AM) Weight 94.001 kg (06/08/19 8:23 AM) Body Mass Index 34.49 m2 (06/08/19 8:23 AM) Problem List Condition Effective Dates Status [...]
--- OUTSIDE RECORDS SUMMARY | 2020-02-13 05:17 | XMS REPORT | Summary of Care ---
Author Author [facility] Organization [facility] Address Unknown Phone Unavailable Encounter BLAINE Zaidi(FATOU) [id number] Date(s): 05/16/19 - 05/16/19 [facility] [address] [address]- [phone] Discharge Disposition: Home or Self Care Attending Physician: Rl Davenport MD Referring Physician: Rl Davenport MD Vital Signs Most recent to 1 oldest [Reference Range]: Height 167.64 cm (05/16/19 3:28 PM) Weight 93.21 kg (05/16/19 3:28 PM) Body Mass Index 33.17 m2 (05/16/19 3:28 PM) Problem List Condition Effective Dates Status [...]
--- OUTSIDE RECORDS SUMMARY | 2020-02-13 05:17 | XMS REPORT | Summary of Care ---
Author Author [facility] Organization [facility] Address Unknown Phone Unavailable Encounter HQ Aletantr_alimario(FIN) [id number] Date(s): 10/17/19 - 10/17/19 [facility] [address] [address]- [phone] Attending Physician: KELSEY MED[facility]ST [facility] Referring Physician: Rl Davenport MD Vital Signs [...]
--- OUTSIDE RECORDS SUMMARY | 2020-02-13 05:17 | XMS REPORT | Summary of Care ---
Author Author [facility] Organization [facility] Urology [facility] Address Unknown Phone Unavailable Encounter BLAINE Zaidi(FIN) [id number] Date(s): 04/27/19 - 04/27/19 [facility] [address] [address]- [phone] Discharge Disposition: Home or Self Care Attending Physician: VISIT, NURSE [facility] Referring Physician: Rl Davenport MD Vital Signs [...] Procedure Date Related Diagnosis Body Site Status Collection of venous blood by venipuncture 04/27/19 Completed Needle biopsy of prostate 09/2018 Completed Complex [...]
--- OUTSIDE RECORDS SUMMARY | 2020-02-13 05:17 | XMS REPORT | Summary of Care ---
Author Author [facility] Organization [facility] Address Unknown Phone Unavailable Encounter BLAINE Zaidi(FIN) [id number] Date(s): 08/05/19 - 08/06/19 [facility] [address] [address]- [phone] Vital Signs No data available for this [...]
--- NOTE | 2020-02-13 07:15 | NUR ---
SPIRITUAL CARE - Pre-Surgery Assessment: Pt in bed. Pt reported supportive attention from family and friends. Intervention: I provided pastoral presence, hospitality, and sympathetic listening. I acquainted pt with availability of venereal disease investigator while hospitalized. Outcome: Pt expressed appreciation for visit. No need for follow up indicated at this time. JAIR Davenportlain Spiritual Care Department O: [phone]
[2020-02-13 09:15] VITALS: BP 145/81
--- NOTE | 2020-02-13 10:29 | Operative Report ---
DATE OF PROCEDURE: 02/13/2020 SURGEON: David Reed MD PROCEDURE: EGD with polypectomy and biopsies and colonoscopy with polypectomy and biopsies. INDICATIONS FOR EGD: Acid reflux. INDICATIONS FOR COLONOSCOPY: Surveillance colonoscopy, personal history of colon polyps. MEDICATIONS: The patient was done under MAC, please see anesthesiologist's note. PROCEDURE IN DETAIL: With the patient in left lateral decubitus position, a flexible fiberoptic Olympus gastroscope was introduced into the esophagus under direct visualization without any difficulty. Approximately 3 cm extrinsic compression was noted at 30 cm from the incisors. There was some patchy erythema noted in distal esophagus. The scope was then advanced with ease into the stomach and mucosa overlying the antrum and the body revealed some patchy erythema and low-grade to moderate edema, and biopsies were obtained and sent to stain for H pylori. Two minute hyperplastic-appearing polyps were noted in the body and those were partially excised with cold biopsy forceps. Pylorus was of normal contour and shape, it was intubated with ease and the scope was advanced all the way to the second portion of the duodenum. The scope was then withdrawn slowly and mucosa overlying the proximal second portion and the duodenal bulb appeared to be within normal limits. The scope was then withdrawn back into the stomach and retroflexed, mucosa overlying the fundus and cardia appeared to be within normal limits. The scope was then straightened out, it was subsequently withdrawn. The patient tolerated the procedure well. IMPRESSION: 1. Approximately 3 cm extrinsic compression in the esophagus at approximately 30 cm from the incisors. 2. Gastritis, biopsied, biopsies sent to stain for. 3. Helicobacter pylori. 4. Gastric polyps x2, partially excised with cold biopsy forceps. PLAN: Follow up histology. Initiate Protonix 40 mg one p.o. q.a.m. a.c. The patient will need an EUS to further delineate the nature of the esophageal finding. The patient was then turned around after adequate lubrication of the anal canal. A flexible fiberoptic Olympus colonoscope was inserted into the rectum with ease and advanced all the way to the cecum. It was then withdrawn slowly. Mucosa overlying the cecum and ascending colon appeared to be within normal limits. Minute nodule was biopsied from the transverse colon and a minute polyp was hot biopsied. Two polyps were hot biopsied from the descending colon. Diverticular disease was noted in the sigmoid colon. One polyp was hot biopsied from the sigmoid colon. The rectum appeared to be within normal limits. The scope was then retroflexed into the distal rectum and moderate-sized internal hemorrhoids were noted, none of which was actively bleeding. The scope was then straightened out, it was subsequently withdrawn. The patient tolerated the procedure well. IMPRESSION: 1. Transverse colon minute nodule, biopsied. 2. Transverse colon polyp, hot biopsied. 3. Descending colon polyps x2, hot biopsied. 4. Diverticulosis. 5. Sigmoid colon polyp x1 hot biopsied. 6. Internal hemorrhoids, none actively bleeding. PLAN: Follow up histology. Initiate high-fiber, low-fat diet. Initiate high-fiber supplement. The patient might benefit from a followup colonoscopy in 3 to 5 years. David Reed MD [facility] T /[id number] cc: Jatin Holman
== END | disposition home or self-care (01) ==
LOC: OR 05:14
PROVIDERS: ATTEND Internal Medicine Gastroenterology
DX: K21.9 Gastro-esophageal reflux disease without esophagitis (principal); D12.3 Benign neoplasm of transverse colon; K31.7 Polyp of stomach and duodenum; K22.2 Esophageal obstruction; K29.50 Unspecified chronic gastritis without bleeding; K31.89 Other diseases of stomach and duodenum; K63.89 Other specified diseases of intestine; K57.30 Diverticulosis of large intestine without perforation or abscess without bleeding; K64.8 Other hemorrhoids; A04.8 Other specified bacterial intestinal infections; Z01.810 Encounter for preprocedural cardiovascular examination; Z01.812 Encounter for preprocedural laboratory examination; Z11.59 Encounter for screening for other viral diseases
CPT/HCPCS: 36415; 43239; 45380; 45384; 85025; 87635; 93005; J2250; J2704; J3010; J7050; 45378; 45385

== ENCOUNTER → 2020-04-12 | Outpatient (CLI) | payer BC ==
[~2020-04-12] MED LIST changes: -DEXMEDETOMIDINE HCL 2 ML ONE; -FENTANYL CITRATE/PF 100MCG/2 ML INJ ONE; -HYOSCYAMINE 0.125 MG TAB ONE; -MIDAZOLAM HCL 2 MG/2 ML VIAL ONE; -PROPOFOL IV EMULSION 10 MG/ML 20 ML VIAL ONE; -SODIUM CHLORIDE 0.9% 250ML 250 ML ONE
--- NOTE | 2020-04-12 15:35 | Diagnostic Imaging Report ---
EXAM: ANKLE 3+ VIEWS LEFT, FOOT LEFT COMPLETE DATE: 04/12/2020 2:15 PM INDICATION: Left foot/ankle pain COMPARISON: None FINDINGS: AP, oblique, lateral views are obtained of the left ankle and foot. There is no evidence for acute fracture or dislocation. The ankle mortise is maintained. Bony mineralization is within normal limits. No focal lytic or blastic abnormality is identified. Mild plantar calcaneal spurring is noted. The surrounding soft tissues are unremarkable without evidence for radiopaque foreign body. IMPRESSION: No acute radiographic abnormality identified within the left ankle or foot. Signed by: Dr. Yordan Lloyd MD on 04/12/2020 3:32 PM
== END ==
LOC: RAD 14:15
PROVIDERS: ATTEND Family Medicine
DX: M25.572 Pain in left ankle and joints of left foot (principal)

== ENCOUNTER → 2024-05-27 | Outpatient (REF) | payer MEDICARE | LOC: RAD 14:25 | PROVIDERS: ATTEND Family Medicine | DX: M25.512 Pain in left shoulder (principal); S40.012A Contusion of left shoulder, initial encounter ==

== ENCOUNTER → 2024-06-22 | Outpatient (REF) | payer MEDICARE | LOC: RAD 10:57 | PROVIDERS: ATTEND Family Medicine | DX: R91.1 Solitary pulmonary nodule (principal) | CPT/HCPCS: 71046 ==